=== PATIENT | female | born 1985 | race Caucasian/White ===

== ENCOUNTER 2018-08-29 20:29 | Emergency (ER) | payer MEDICAID ==
[~2018-08-29] VITALS: Ht 157.5 cm; Wt 75.2 kg
[2018-08-29 20:45] VITALS: Ht 157.5 cm; Wt 75.2 kg
--- NOTE | 2018-08-29 21:00 | EN ---
Date/Time of Note Date/Time of Note DATE: 08/29/18 TIME: 21:00 ER Progress Note ED 3 medical screening [id number] female G3 para 2 with vaginal spotting for 2 days some mild suprapubic cramping. Ultrasound ordered. Patient otherwise well-appearing in no apparent distress. ALTAF WERNER MD August 29, 2018 21:00
[2018-08-29] MEDS ORDERED: ACETAMINOPHEN 325 MG TAB PO STA (22:06)
--- NOTE | 2018-08-30 00:35 | ERD ---
ER Documentation Chief Complaint Chief Complaint ; VAG BLEEDING X2DAYS; 14WKS PREG HPI This is a very pleasant 30-year-old female complains of vaginal bleeding for 2 days. 14 weeks . Denies fevers chills nausea vomiting. Denies any abdominal pain. ROS All systems reviewed and are negative except as per history of present illness. Allergies Allergies: Coded Allergies: No Known Allergy (Unverified , 08/29/18) PMhx/Soc Medical and Surgical Hx: pt denies Medical Hx, pt denies Surgical Hx History of Surgery: No Anesthesia Reaction: No Hx Neurological Disorder: No Hx Respiratory Disorders: No Hx Cardiac Disorders: No Hx Psychiatric Problems: No Hx Miscellaneous Medical Probl: No Hx Alcohol Use: No Hx Substance Use: No Hx Tobacco Use: No Smoking Status: Never smoker Physical Exam Vitals Vital Signs Date Temp Pulse Resp B/P (MAP) Pulse Ox O2 O2 Flow FiO2 Time Delivery Rate 08/29/18 98.6 95 19 132/63 99 20:45 (86) Physical Exam Const: No acute distress Head: Atraumatic Eyes: Normal Conjunctiva ENT: Normal External Ears, Nose and Mouth. Neck: Full range of motion. No meningismus. Resp: Clear to auscultation bilaterally Cardio: Regular rate and rhythm, no murmurs Abd: Soft, non tender, non distended. Normal bowel sounds Skin: No petechiae or rashes Back: No midline or flank tenderness Ext: No cyanosis, or edema Neur: Awake and alert Psych: Normal Mood and Affect Result Diagram: 08/29/180 Results 24 hrs Laboratory Tests Test 08/29/18 22:20 White Blood Count 10.4 10^3/ul Red Blood Count 4.46 10^6/ul Hemoglobin 12.9 g/dl Hematocrit 39.4 % Mean Corpuscular Volume 88.3 fl Mean Corpuscular Hemoglobin 28.9 pg Mean Corpuscular Hemoglobin Concent 32.7 g/dl Red Cell Distribution Width 12.7 % Platelet Count 229 10^3/UL Mean Platelet Volume 10.8 fl Immature Granulocytes % 0.400 % Neutrophils % 50.8 % Lymphocytes % 34.0 % Monocytes % 8.3 % Eosinophils % 6.1 % Basophils % 0.4 % Nucleated Red Blood Cells % 0.0 /100WBC Immature Granulocytes # 0.040 10^3/ul Neutrophils # 5.3 10^3/ul Lymphocytes # 3.5 10^3/ul Monocytes # 0.9 10^3/ul Eosinophils # 0.6 10^3/ul Basophils # 0.0 10^3/ul Nucleated Red Blood Cells # 0.0 10^3/ul Urine Color COLORLESS Urine Clarity CLEAR Urine pH 7.0 Urine Specific [place] 1.003 Urine Ketones NEGATIVE mg/dL Urine Nitrite NEGATIVE mg/dL Urine Bilirubin NEGATIVE mg/dL Urine Urobilinogen NEGATIVE mg/dL Urine Leukocyte Esterase NEGATIVE Ananda/ul Urine Microscopic RBC 0 /HPF Urine Microscopic WBC 0 /HPF Urine Squamous Epithelial Cells FEW /HPF Urine Bacteria FEW /HPF Urine Hemoglobin 1+ mg/dL Urine Glucose NEGATIVE mg/dL Urine Total Protein NEGATIVE mg/dl Beta HCG, Quantitative 98386.0 mIU/ml Current Medications Medications Dose Sig/Mey Start Time Status Last (Trade) Ordered Route PRN Stop Time Admin Dose Reason Admin 650 mg ONCE STAT 08/29/18 DC 08/29/18 Acetaminophen PO 22:06 22:21 (Tylenol 08/29/18 22:09 Tab) Procedures/MDM Medical decision making: This very pleasant 32 female vaginal bleeding must be considered a threatened . I discussed case with Dr. Olson given conc erning ultrasound findings, however he feels patient stable for outpatient management follow-up ultrasound with Dr. Galan. This I explained the results the patient at the bedside she understands care plan and diagnosis. Departure Diagnosis: Primary Impression: Vaginal bleeding Additional Impression: Vaginal bleeding in patient at less than 20 weeks gestation Condition: Stable Patient Instructions: Possible Miscarriage (Threatened ) MELISA KAPLAN August 30, 2018 00:35
[2018-08-30 01:03] VITALS: BP 120/82; PULSE 99; RESP 21
== END 2018-08-30 01:05 | disposition home or self-care (01) ==
LOC: FTE 20:29 → E/R 08-30 01:05
DX: O20.9 Hemorrhage in early pregnancy, unspecified (principal); R10.2 Pelvic and perineal pain; Z3A.15 15 weeks gestation of pregnancy
CPT/HCPCS: 36415; 76805; 81001; 84702; 85025; 86900; 86901; Z7502; Z7610

== ENCOUNTER 2019-01-25 07:05 | Outpatient (CLI) | payer MEDICAID ==
[~2019-01-25] VITALS: Ht 167.6 cm; Wt 83.0 kg
[~2019-01-25 07:05] MED LIST: PREN1TAB13 PO
[2019-01-25 07:31] VITALS: BP 117/71; PULSE 95; RESP 19; Ht 167.6 cm; Wt 83.0 kg
== END 2019-01-25 09:20 | disposition home or self-care (01) ==
LOC: OBT 07:05 → L-D 07:05 → OBT 09:20
PROVIDERS: ATTEND Obstetrics & Gynecology
DX: O41.93X0 Disorder of amniotic fluid and membranes, unspecified, third trimester, not applicable or unspecified (principal); Z3A.35 35 weeks gestation of pregnancy
CPT/HCPCS: 76818; Z7500; G0463